=== PATIENT | female | born 1950 | race African-American/Black ===

== ENCOUNTER 2017-01-09 21:24 | Emergency (ER) | payer OTHER, BC ==
[~2017-01-09] VITALS: Ht 160 cm; Wt 52.2 kg
[2017-01-09 22:42] LABS: EOSINOPHIL (%) 2.8 % (0-5); EOSINOPHIL COUNT 0.2 K/uL (0-0.3); HEMATOCRIT 34.8 % (36.0-46.0); IMMATURE GRANULOCYTE (%) 0.5 % (0.0-0.7); INSTRUMENT ABS NEUTROPHIL CT 5.3 K/uL; LYMPHOCYTE COUNT 1.4 K/uL (1.0-2.8); MCH 33.7 PG (29.0-34.0); MCHC 33.9 G/DL (30.0-36.0); MCV 99.4 FL (83-99); MEAN PLAT.VOLUME 9.1 uM^3 (9.5-12.4); MONOCYTE (%) 8.7 % (3-12); MONOCYTE COUNT 0.7 K/uL (0-0.8); NEUTROPHIL COUNT 5.3 K/uL (1.8-6.4); PLATELET COUNT 259 K/uL (156-360); RBC DIS.WIDTH-CV 13.4 % (11.8-14.6); WHITE BLOOD COUNT 7.7 K/uL (4.1-10.2)
[2017-01-09 22:50] LABS: CHLORIDE 105 mEq/L (99-109); POTASSIUM 3.5 mEq/L (3.7-5.4)
[2017-01-09 22:51] LABS: SODIUM 138 mEq/L (136-147)
[2017-01-09 22:53] LABS: GLUCOSE 93 mg/dL (70-99)
[2017-01-09 22:54] LABS: ANION GAP 13 MEQ/L (2-14)
[2017-01-09 22:55] LABS: TOTAL BILIRUBIN 0.7 mg/dL (0.0-1.0)
[2017-01-09 22:56] LABS: SERUM ETHYL ALCOHOL 68 mg/dL
[2017-01-09 22:57] LABS: ALKALINE PHOSPHATASE 79 IU/L (3-129)
[2017-01-09 22:58] LABS: UREA NITROGEN (BUN) 13 mg/dL (9-23)
[2017-01-09 22:59] LABS: DIRECT BILIRUBIN 0.3 mg/dL (0.0-0.3)
[2017-01-09 23:00] LABS: LIPASE 113 U/L (1.0-51.0)
[2017-01-09 23:02] LABS: GFR ESTIMATE (CALCULATED) > 59 mL/min/; TROP-I INTERPRETATION NEGATIVE; TROPONIN-I < 0.01 ng/mL (0.0-0.30)
[2017-01-10 01:10] LABS: TROP-I INTERPRETATION NEGATIVE; TROPONIN-I < 0.01 ng/mL (0.0-0.30)
[2017-01-10 01:37] VITALS: BP 105/67
== END 2017-01-10 01:37 | disposition home or self-care (01) ==
LOC: EME 21:24
PROVIDERS: Emergency Medicine
DX: R55 Syncope and collapse (principal); K85.90 Acute pancreatitis without necrosis or infection, unspecified; Z86.74 Personal history of sudden cardiac arrest; Z95.0 Presence of cardiac pacemaker; Z95.5 Presence of coronary angioplasty implant and graft; F17.200 Nicotine dependence, unspecified, uncomplicated
CPT/HCPCS: 71010; 80048; 80076; 83690; 84484; 85025; 93005; 99281; 99285; G0480